=== PATIENT | female | born 1985 | race Caucasian/White ===

== ENCOUNTER 2017-01-23 12:36 | Emergency (ER) | payer OTHER ==
[~2017-01-23] VITALS: Ht 160 cm; Wt 69.0 kg
[~2017-01-23 12:36] MED LIST: ALBUTEROL SULF8.5 GM IH; CIPRO500 MG PO; DEPO-PROVER150 MG/ML IM; DIFLUCAN150 MG PO; DOXYCYCLINE HY100 MG PO; HYCODAN SYRUP480 ML PO; KEFLEX500 MG PO; KLONOPIN0.5 M1 PO; MACROBID100 MG PO; METHADONE 22 MG/1 ML PO; METHADONE10 MG PO; METHADONE10 MG/1 M1 PO; MONISTAT 324 GM VG; MOTRIN800 MG PO; NAPROSYN500 MG PO; PAXIL40 MG PO; PREDNISONE50 MG PO; PROVENTIL,2.5 MG/3 M IH; PROVENTIL2.5 MG/3 M IH; PROZAC10 MG PO; PYRIDIUM100 MG PO; PYRIDIUM200 MG PO; ROBITUSSIN AC,T10 ML PO; ROBITUSSIN100 MG/5 M PO; SEROQUEL50 MG PO; TESSALON PERLE100 MG PO; TOPAMAX100 MG PO; TORADOL10 MG PO; TRAMADOL HCL50 MG PO; ULTRAM50 MG PO; WELLBUTRIN XL300 MG PO; XANAX2 MG PO; ZITHROMAX Z-PA250 MG PO; ZITHROMAX250 MG PO; ZITHROMAX500 MG PO
[2017-01-23 13:33] LABS: MCH 30.4 PG (29.0-34.0); MCHC 33.4 G/DL (30.0-36.0); MCV 90.9 FL (83-99); MEAN PLAT.VOLUME 10.4 uM^3 (9.5-12.4); PLATELET COUNT 334 K/uL (156-360); RBC DIS.WIDTH-CV 13.5 % (11.8-14.6); RBC DIS.WIDTH-SD 45.6 % (39-53); RED BLOOD COUNT 4.18 M/uL (3.80-5.20); WHITE BLOOD COUNT 16.6 K/uL (4.1-10.2)
[2017-01-23 13:46] LABS: D-DIMER ELISA < 0.15 mg/L FEU (< 0.57)
[2017-01-23 13:48] LABS: CHLORIDE 104 mEq/L (99-109); POTASSIUM 3.9 mEq/L (3.7-5.4); SODIUM 141 mEq/L (136-147)
[2017-01-23 13:49] LABS: GLUCOSE 114 mg/dL (70-99)
[2017-01-23 13:51] LABS: ANION GAP 9 MEQ/L (2-14)
[2017-01-23 13:53] LABS: GFR ESTIMATE (CALCULATED) > 59 mL/min/
[2017-01-23 13:54] LABS: UREA NITROGEN (BUN) 13 mg/dL (9-23)
[2017-01-23 14:04] LABS: QUANTITATIVE HCG < 4.0 MIU/ML
[2017-01-23] MEDS ORDERED: NAPROSYN500 MG PO (14:52)
[2017-01-23] MEDS ORDERED: TESSALON PERLE100 MG PO (14:52)
[2017-01-23] MEDS ORDERED: DUONEB 2.5-0.5 M3 ML AEROSOL (14:52)
[2017-01-23 15:04] VITALS: BP 127/76
== END 2017-01-23 15:15 | disposition home or self-care (01) ==
LOC: EME 12:36
PROVIDERS: Nurse Practitioner Family
DX: R06.02 Shortness of breath (principal); R06.2 Wheezing; F17.200 Nicotine dependence, unspecified, uncomplicated; F11.20 Opioid dependence, uncomplicated
CPT/HCPCS: 71020; 80048; 84702; 85027; 85379; 93005; 94640; 99281; 99284

== ENCOUNTER 2018-04-07 23:24 | Emergency (ER) | payer OTHER ==
[~2018-04-07 23:24] MED LIST changes: +DUONEB 2.5-0.5 M3 ML AEROSOL
== END 2018-04-08 02:02 ==
LOC: TRA 23:24
PROC: 5A12012 Performance of Cardiac Output, Single, Manual (ICD-10-PCS; principal; 2018-04-07)
DX: T71.162A Asphyxiation due to hanging, intentional self-harm, initial encounter (principal); X83.8XXA Intentional self-harm by other specified means, initial encounter; I46.9 Cardiac arrest, cause unspecified; Z88.2 Allergy status to sulfonamides; Z88.0 Allergy status to penicillin; Z88.8 Allergy status to other drugs, medicaments and biological substances
CPT/HCPCS: 80048; 81003; 82150; 83690; 84702; 85025; 86850; 86900; 86901; 99281; 99283; G0480